=== PATIENT | female | born 1975 | race Caucasian/White ===

== ENCOUNTER 2019-10-25 21:51 | Emergency (ER) | payer SELFPAY ==
[2019-10-25 21:55] VITALS: BP 115/70; PULSE 72; TEMP 97.8; BMI 41.1
[2019-10-25] MEDS ORDERED: FAMOTIDINE 20 MG/50 ML IVPB 20 MG/50 ML MG IVPB ONE ×2 (22:07→22:26)
[2019-10-25] MEDS ORDERED: ONDANSETRON 4 MG/2 ML VIAL IVPUSH ONE (22:07)
[2019-10-25] MEDS ORDERED: SODIUM CHLORIDE 1,000 ML IV STA (22:07)
--- NOTE | 2019-10-25 22:14 | PDOC ---
History of Present Illness - General Chief Complaint: Pain Stated Complaint: ABDOMINAL PAIN Time Seen by Provider: 10/25/19 22:00 History Source: Patient Exam Limitations: No Limitations Past History - Past Medical History Allergies/Adverse Reactions: Allergies Allergy/AdvReac Type Severity Reaction Status Date / Time No Known Allergies Allergy Verified 10/25/19 21:55 COPD: No - Psycho Social/Smoking Cessation Hx Smoking History: Current every day smoker Have you smoked in the past 12 months: Yes Number of Cigarettes Smoked Daily: 1 Information on smoking cessation initiated: No Hx Alcohol Use: Yes Drug/Substance Use Hx: No *Physical Exam - Vital Signs Last Vital Signs Temp Pulse Resp BP Pulse Ox 97.8 F 72 18 115/70 100 10/25/19 21:52 10/25/19 21:52 10/25/19 21:52 10/25/19 21:52 10/25/19 21:52 - Physical Exam General Appearance: No: Apparent Distress Respiratory/Chest: positive: Lungs Clear, Normal Breath Sounds. negative: Respiratory Distress Cardiovascular: positive: Regular Rhythm, Regular Rate, S1, S2. negative: Murmur Gastrointestinal/Abdominal: positive: Normal Bowel Sounds, Soft. negative: Tender, Distended, Guarding, Rebound Integumentary: positive: Normal Color Neurologic: positive: Alert ED Treatment Course - LABORATORY CBC & Chemistry Diagram: 10/25/19 22:20 10/25/19 22:20 Medical Decision Making - Medical Decision Making 44 y/o F with no sig pmh presents with NBNB emesis and watery diarrhea x 3 days which started an hour after eating stuffed mushrooms at [employer]. States today she ate some grapes which caused some epigastric discomfort. States having several episodes of diarrhea per day. Is able to keep down liquids. Denies fever, sob, cp, urinary sxs, recent travel, sick contacts, use of antibiotics. Denies prior abdominal/pelvic surgeries. Likely viral gastroenteritis Plan: Labs, IVF, Pepcid, Zofran, reassess 10/25/19 22:10 Labs reviewed K 3.4, Mg normal rest unremarkable patient feeling better on reassessment passed po challenge stable for dc 10/25/19 23:17 Discharge - Discharge Information Problems reviewed: Yes Clinical Impression/Diagnosis: Gastroenteritis Condition: Stable Disposition: HOME - Admission No - Additional Discharge Information Prescription Drug Monitoring Program (I-STOP) results: I-STOP not reviewed - Follow up/Referral - Patient Discharge Instructions Patient Printed Discharge Instructions: DI for Viral Gastroenteritis -- Adult Additional Instructions: Thank you for choosing [facility]. It was a pleasure taking care of you. You have likely have the stomach bug Recommend plenty of hydration (at least 2-3L of water daily) You may drink pedialyte or gatorade Eat light food like bananas, rice, applesauce, toast, crackers until feeling better Follow-up with your doctor in 2 day Return to the Emergency Department if your symptoms worsen or persist or have other concerning symptoms. - Post Discharge Activity
--- NOTE | 2019-10-25 22:14 | PDOC ---
*Physical Exam - Vital Signs Last Vital Signs Temp Pulse Resp BP Pulse Ox 97.8 F 72 18 115/70 100 10/25/19 21:52 10/25/19 21:52 10/25/19 21:52 10/25/19 21:52 10/25/19 21:52 ED Treatment Course - LABORATORY CBC & Chemistry Diagram: 10/25/19 22:20 10/25/19 22:20 Medical Decision Making - Medical Decision Making 10/25/19 22:13 Patient seen by the advanced practice provider under my supervision. Ancillary testing reviewed as necessary. I agree with plan as outlined by the advanced practice provider. Discharge - Discharge Information Problems reviewed: Yes Clinical Impression/Diagnosis: Gastroenteritis Condition: Stable Disposition: HOME - Follow up/Referral - Patient Discharge Instructions Patient Printed Discharge Instructions: DI for Viral Gastroenteritis -- Adult Additional Instructions: Thank you for choosing [facility]. It was a pleasure taking care of you. You have likely have the stomach bug Recommend plenty of hydration (at least 2-3L of water daily) You may drink pedialyte or gatorade Eat light food like bananas, rice, applesauce, toast, crackers until feeling better Follow-up with your doctor in 2 day Return to the Emergency Department if your symptoms worsen or persist or have other concerning symptoms. - Post Discharge Activity
[2019-10-25] MEDS ORDERED: ONDANSETRON 4 MG/2 ML VIAL ONE (22:31)
[2019-10-25 22:33] LABS: BASO % 0.5 % (0-2.0); HEMATOCRIT 36.8 % (32.4-45.2); HEMOGLOBIN 11.7 GM/dL (10.7-15.3); LYMPH % 39.4 % (8-40); MCH 22.9 pg (25.7-33.7); MCHC 31.7 g/dl (32.0-36.0); MEAN CELL VOLUME 72.2 fl (80-96); MEAN PLT VOLUME 8.1 fl (7.5-11.1); NEUT % 48.1 % (42.8-82.8); PLATELET COUNT 350 K/MM3 (134-434); RDW 18.2 % (11.6-15.6); WHITE BLOOD COUNT 5.7 K/mm3 (4.0-10.0)
[2019-10-25 23:02] LABS: MAGNESIUM 1.8 mg/dL (1.8-2.4)
[2019-10-25 23:11] LABS: ALBUMIN 3.5 g/dl (3.4-5.0); BILIRUBIN,TOTAL 0.5 mg/dL (0.2-1); BLOOD UREA NITROGEN 5.8 mg/dL (7-18); CALCIUM 8.1 mg/dL (8.5-10.1); CREATININE 0.6 mg/dL (0.55-1.3); POTASSIUM 3.4 mmol/L (3.5-5.1); TOT PROT 7.6 g/dl (6.4-8.2)
== END 2019-10-25 23:26 | disposition home or self-care (01) ==
LOC: SUPCPDRO 21:51 → JER 21:51
PROC: 3E033GC Introduction of Other Therapeutic Substance into Peripheral Vein, Percutaneous Approach (ICD-10-PCS; principal; 2019-10-25)
PROC: 3E033GC Introduction of Other Therapeutic Substance into Peripheral Vein, Percutaneous Approach (ICD-10-PCS; 2019-10-25)
DX: K52.9 Noninfective gastroenteritis and colitis, unspecified (principal)
CPT/HCPCS: 36415; 80053; 83690; 83735; 84703; 85025; 99284-25; J7030